=== PATIENT | male | born 1980 | race Caucasian/White ===

== ENCOUNTER 2017-06-28 22:26 | Outpatient (CLI) ==
[2016-01-27 19:25] VITALS: BMI 29.1
== END 2017-06-28 22:27 | disposition left against medical advice (07) ==
LOC: AMBL 22:26
PROVIDERS: ATTEND Internal Medicine
DX: Z04.3 Encounter for examination and observation following other accident (principal); V89.2XXA Person injured in unspecified motor-vehicle accident, traffic, initial encounter

== ENCOUNTER 2018-06-02 21:01 | Outpatient (CLI) ==
[2018-06-02 21:32] VITALS: BMI 27.1
== END 2018-06-02 21:08 | disposition short-term general hospital (02) ==
LOC: AMBL 21:01
PROVIDERS: ATTEND Family Medicine
DX: Z04.1 Encounter for examination and observation following transport accident (principal); V48.6XXA Car passenger injured in noncollision transport accident in traffic accident, initial encounter; X31.XXXA Exposure to excessive natural cold, initial encounter

== ENCOUNTER 2018-06-02 21:20 | Emergency (ER) ==
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
[2018-06-02 21:32] VITALS: BP 130/80; TEMP 97.8; BMI 27.1
== END 2018-06-02 22:06 | disposition home or self-care (01) ==
LOC: ED 21:20
DX: T75.1XXA Unspecified effects of drowning and nonfatal submersion, initial encounter (principal); V49.9XXA Car occupant (driver) (passenger) injured in unspecified traffic accident, initial encounter; T69.8XXA Other specified effects of reduced temperature, initial encounter; F17.210 Nicotine dependence, cigarettes, uncomplicated
CPT/HCPCS: 99283